=== PATIENT | female | born 1970 | race Caucasian/White ===

== ENCOUNTER 2019-03-04 19:37 | Emergency (ER) | payer OTHER ==
[~2019-03-04] VITALS: Ht 167.6 cm; Wt 99.8 kg
--- OUTSIDE RECORDS SUMMARY | 2019-03-04 19:40 | XMS REPORT | Clinical Summary ---
Author Author [facility] Organization [facility] Address Unknown Phone Unavailable Care Team Providers Care Bingo Usher Name Role Phone Silvana Soriano MD PCP Allergies No Known Allergies Medications End Date Status Medication Sig Dispensed Refills Start Date Active DULoxetine (CYMBALTA) 60 Take 60 mg by 1 MG capsule mouth once 6 daily. Active esomeprazole (NexIUM) 40 TAKE 1 0 MG capsule CAPSULE DAILY 6 PT IS DUE FOR VISIT Active gabapentin (NEURONTIN) TAKE 2 3 300 MG capsule CAPSULES 3 6 TIMES A DAY Active hydrochlorothiazide Take 12.5 mg 11 (MICROZIDE) 12.5 mg by mouth once 6 capsule daily. Active HYDROcodone-acetaminophen TAKE 1 TABLET 0 (NORCO 10-325) 10-325 mg EVERY 8 HOURS 6 per tablet Active metoprolol succinate XL Take 50 mg by 0 (TOPROL-XL) 50 MG 24 hr mouth once 6 tablet daily. Active tiZANidine (ZANAFLEX) 4 Take 4 mg by 3 MG tablet mouth 6 nightly. Active Problems Problem Noted Date Hand sprain 07/23/2016 Family History Medical History Relation Name Comments Hypertension Mother Mental illness Mother Relation Name Status Comments Mother Social History Date Tobacco Use Types Packs/Day Years Used Never Smoker Alcohol Use Drinks/Week oz/Week Comments No Sex Assigned at Date Recorded Not on file Industry Job Start Date Occupation Not on file Not on file Not on file Travel End Travel History Travel Start No recent travel history available. Last Filed Vital Signs Not on file Plan of Treatment Health Maintenance Due Date Last Done Comments CERVICAL CANCER SCREENING 1991 INFLUENZA VACCINE 05/28/2019 Results Not on fileafter 03/03/2018 Insurance Payer Benefit Subscriber ID Type Phone Address Plan / Group AETNA AETNA PPO xxxxxxxxxx PPO OPEN CHOICE Advance Directives Patient has advance care planning documents on file. For more information, troy hamilton contact: Hugo Christensen [address] [place] [address]
--- OUTSIDE RECORDS SUMMARY | 2019-03-04 19:40 | XMS REPORT ---
Author Author [facility] Address Unknown Phone Unavailable Care Team Providers Care Hand Baseball Sewer Name Role Phone Unavailable Unavailable Problems This patient has no known problems. Allergies, Adverse Reactions, Alerts This patient has no known allergies or adverse reactions. Medications This patient has no known medications.
[2019-03-04] MEDS ORDERED: ONDANSETRON HCL INJ 2MG/ML 2ML 2 MG/ML VIAL IV ONE (20:48)
[2019-03-04] MEDS ORDERED: SODIUM CHLORIDE 0.9% 1000ML 1,000 ML IV SCH (21:00)
[2019-03-04] MEDS ORDERED: ONDANSETRON ODT8 MG PO (21:18)
[2019-03-04] MEDS ORDERED: LOMOTIL TABLET1 EACH PO (21:18)
[2019-03-04] MEDS ORDERED: POTASSIUM CHLORIDE 10MEQ EA PO ONE (21:45)
== END 2019-03-04 22:50 | disposition home or self-care (01) ==
LOC: FSED 19:37
DX: R11.2 Nausea with vomiting, unspecified (principal); R19.7 Diarrhea, unspecified; E87.6 Hypokalemia; K52.9 Noninfective gastroenteritis and colitis, unspecified
CPT/HCPCS: 99283; J2405